=== PATIENT | male | born 1955 | race Caucasian/White ===

== ENCOUNTER 2024-02-16 10:04 | Outpatient (CLI) | payer MEDICARE, SELFPAY ==
--- NOTE | 2024-02-16 11:07 | W.ANESCHARGE ---
Anesthesia Charges Start Date/Time Anesthesia Start Date: 02/16/24 Anesthesia Start Time: 11:27 Stop Date/Time Anesthesia Stop Date: 02/16/24 Anesthesia Stop Time: 12:02
--- NOTE | 2024-02-16 12:04 | W.ANESCHARGE ---
Anesthesia Charges Start Date/Time Anesthesia Start Date: 02/16/24 Anesthesia Start Time: 11:27 Stop Date/Time Anesthesia Stop Date: 02/16/24 Anesthesia Stop Time: 12:02
== END 2024-02-16 10:05 | disposition home or self-care (01) ==
PROVIDERS: PCP Family Medicine; Visit Provider Internal Medicine Gastroenterology
DX: K63.5 Polyp of colon (principal); K62.1 Rectal polyp; K57.30 Diverticulosis of large intestine without perforation or abscess without bleeding; Z86.010 Personal history of colon polyps
CPT/HCPCS: 00811; 45385; 88305; J2704